=== PATIENT | female | born 1935 | race Caucasian/White ===

== ENCOUNTER 2016-12-18 10:01 | Day surgery (SDC) | payer MEDICARE ==
[~2016-12-18] VITALS: Ht 165.1 cm; Wt 65.5 kg
[~2016-12-18 10:01] MED LIST: ACET-1757 PO; ASPI-621 PO; BRIM5DRO4 EACHEYE; CALC-451 PO; CEFD300C37 PO; COLL1POW2 PO; COLLAGEN PO; DIPH25TA2 PO; DORZ10DR7 RIGHTEYE; GABA600T2 PO; GLUC1CAP PO; GLUC1CAP48 PO; KRIL500C PO; LATA2.5D3 EACHEYE; LOVA10TA PO; MELA1TAB6 PO; MULT-26 PO; NITR100C6 PO; OMEP-110 PO; PANT40TA5 PO; SERT50TA5 PO; TIMO5DRO5 EACHEYE; TRAM50TA2 PO
[2016-12-18 10:36] VITALS: BP 120/62
[2016-12-18] MEDS ORDERED: LIDOCAINE/PF 1%-EPI 1:200K, 30 ML ONE (10:36)
== END 2016-12-18 12:00 ==
LOC: CACL 10:01
PROVIDERS: ATTEND Internal Medicine Cardiovascular Disease
DX: R55 Syncope and collapse (principal); F41.9 Anxiety disorder, unspecified; G60.9 Hereditary and idiopathic neuropathy, unspecified; K21.9 Gastro-esophageal reflux disease without esophagitis; E78.5 Hyperlipidemia, unspecified; Z88.6 Allergy status to analgesic agent; Z88.1 Allergy status to other antibiotic agents; Z88.5 Allergy status to narcotic agent; Z88.8 Allergy status to other drugs, medicaments and biological substances
CPT/HCPCS: 33282; C1764; J3490

== ENCOUNTER 2018-12-04 11:15 | Outpatient (CLI) | payer MEDICARE, OTHER ==
[~2018-12-04 11:15] MED LIST changes: -ACET-1757 PO; +ACET-2065 PO; -ASPI-621 PO; +ASPI81TA45 PO; -GABA600T2 PO; +GABA600T7 PO; +SERT50TA28 PO; -SERT50TA5 PO
== END 2018-12-04 23:59 | disposition home or self-care (01) ==
LOC: CFH 11:15
PROVIDERS: ATTEND Nurse Practitioner Family
DX: Z12.31 Encounter for screening mammogram for malignant neoplasm of breast (principal)
CPT/HCPCS: 77067

== ENCOUNTER → 2019-07-01 | Outpatient (CLI) | payer MEDICARE, OTHER | END | disposition home or self-care (01) | LOC: CVU 12:37 | PROVIDERS: ATTEND Internal Medicine Cardiovascular Disease | DX: I08.2 Rheumatic disorders of both aortic and tricuspid valves (principal); I47.1 Supraventricular tachycardia; R55 Syncope and collapse | CPT/HCPCS: 93306 ==

== ENCOUNTER 2019-12-12 14:16 | Inpatient (IN) | payer MEDICARE, OTHER ==
[~2019-12-12] VITALS: Ht 162.6 cm; Wt 65.8 kg
[~2019-12-12 14:16] MED LIST changes: +DIPH-792 PO; -DIPH25TA2 PO; -LATA2.5D3 EACHEYE; +LATA2.5D4 EACHEYE; -PANT40TA5 PO; +PANT40TA6 PO
--- NOTE | 2019-12-12 15:09 | NUR ---
PT TO ROOM FROM LOBBY VIA WHEELCHAIR. SON ACCOMPANIES. PT/SON REPORT PROGRESSIVE REDNESS/SWELLING X TWO DAYS. RECENT HX OF UTI AND COVID +. DENIES FEVER/TRAUMA. NO OPEN WOUNDS NOTED. +DISTAL CAP REFILL/SENSATION/STRENGTH. WRIST TENDER TO LIGHT PALPATION . BP/SPO2 MONITOR IN PLACE. SON AT BEDSIDE. AWAITING ERP EVAL
[2019-12-12] MEDS ORDERED: KETOROLAC 30 MG/1 ML IVPush ONE (16:00)
[2019-12-12] MEDS ORDERED: CEFTRIAXONE PMX 1GM/50ML 50 ML IVPB ONE (16:00)
[2019-12-12] MEDS ORDERED: KETOROLAC 30 MG/1 ML ONE (16:10)
[2019-12-12 16:25] LABS: BASOPHILS % (AUTO) 0 % (0-1); EOSINOPHILS % (AUTO) 1 % (1-7); LYMPHOCYTES % (AUTO) 12 % (22-44); MEAN CORPUSCULAR HEMOGLOBIN 30.3 pg (27.0-34.8); MEAN CORPUSCULAR HGB CONC 33.1 g/dL (32.4-35.8); MEAN PLATELET VOLUME 7.2 fL (7.4-10.4); MONOCYTES % (AUTO) 9 % (2-9); NEUTROPHILS % (AUTO) 78 % (42-75); PLATELET COUNT 235 x10^3/uL (130-400); RED BLOOD COUNT 4.24 x10^6/uL (3.82-5.3); RED CELL DISTRIBUTION WIDTH 15.3 % (9.6-15.2)
[2019-12-12 16:28] LABS: MD NO
--- NOTE | 2019-12-12 16:28 | NUR ---
IV ESTABLISHED. BC X1 DRAWN. PT MEDICATED PER EMAR FOR PAIN. ADMITTING MD AT BEDSIDE FOR INITIAL ASSESSMENT. Addendum: 12/12/19 at 1629 by LWEGENER ROCEPHIN ORDER CANCELLED PT RECEIVED IM ROCEPHIN AT SAFEKEEPING CLERK
[2019-12-12] MEDS ORDERED: SIMV20TA19 PO (16:29)
[2019-12-12] MEDS ORDERED: SODIUM CHLORIDE FLUSH 10ML SYR IVF ONE (16:30)
[2019-12-12 16:36] LABS: ALBUMIN 3.6 g/dL (3.4-5.0); ANION GAP 6 mmol/L (5-15); CALCIUM 9.6 mg/dL (8.5-10.1); CHLORIDE 109 mmol/L (98-107); CREATININE 0.82 mg/dL (0.55-1.02)
[2019-12-12] MEDS ORDERED: morphine SULFATE 10 MG/ML, 1ML IVPush PRN (17:00)
[2019-12-12] MEDS ORDERED: HYDROmorphone 1 MG/ML, 1ML INJ IV PRN (17:00)
[2019-12-12] MEDS ORDERED: hydrALAzine 20 MG/ML, 1ML IVPush PRN (17:00)
[2019-12-12] MEDS ORDERED: PROMETHAZINE 25 MG/ML, 1ML IM PRN (17:00)
[2019-12-12] MEDS ORDERED: ONDANSETRON 2MG/ML, 2ML IVPush PRN (17:00)
[2019-12-12] MEDS ORDERED: LABETALOL 5MG/ML, 20ML IVPush PRN (17:00)
[2019-12-12] MEDS ORDERED: KETOROLAC 30 MG/1 ML IV PRN (17:00)
[2019-12-12] MEDS ORDERED: POLYETHYLENE GLYCOL 17 GM PACKET PO PRN (17:00)
[2019-12-12] MEDS ORDERED: IBUPROFEN 600 MG TABLET PO PRN (17:00)
[2019-12-12] MEDS ORDERED: ACETAMINOPHEN 325 MG TABLET PO PRN (17:00)
--- NOTE | 2019-12-12 17:15 | NUR ---
REPORT TO ANNETTE ANDERS ON FLOOR. PT PREPARED FOR TRANSPORT
[2019-12-12 17:45] VITALS: BP 106/63
[2019-12-12] MEDS: AMPICILLIN/SULBACTAM 1,500 MG in SODIUM CHLORIDE 0.9% 50 ML IV SCH ×2 (18:54→23:14)
[2019-12-12] MEDS: HYDROcodone/APAP 5/325 TABLET PO PRN ×2 (18:55→23:14)
[2019-12-12] MEDS: HEPARIN 5,000 UNITS/ML, 1ML SQ SCH (18:55)
[2019-12-12 20:10] VITALS: BP 117/60
[2019-12-12] MEDS: LATANOPROST OPHTH 0.005%, 2.5ML EACHEYE SCH (21:00)
[2019-12-12] MEDS: LACTULOSE 10 GM/15 ML UDC PO SCH (23:13)
[2019-12-12] MEDS: GABAPENTIN 300 MG CAPSULE PO SCH (23:13)
[2019-12-13 00:21] VITALS: BP 109/51
[2019-12-13] MEDS: HEPARIN 5,000 UNITS/ML, 1ML SQ SCH ×3 (02:58→18:35)
[2019-12-13] MEDS: AMPICILLIN/SULBACTAM 1,500 MG in SODIUM CHLORIDE 0.9% 50 ML IV SCH ×4 (06:06→22:29)
[2019-12-13 06:29] LABS: BASOPHILS % (AUTO) 0 % (0-1); EOSINOPHILS % (AUTO) 2 % (1-7); LYMPHOCYTES % (AUTO) 27 % (22-44); MEAN CORPUSCULAR HEMOGLOBIN 30.4 pg (27.0-34.8); MEAN CORPUSCULAR HGB CONC 32.7 g/dL (32.4-35.8); MEAN PLATELET VOLUME 7.6 fL (7.4-10.4); MONOCYTES % (AUTO) 10 % (2-9); NEUTROPHILS % (AUTO) 61 % (42-75); PLATELET COUNT 191 x10^3/uL (130-400); RED BLOOD COUNT 3.71 x10^6/uL (3.82-5.3); RED CELL DISTRIBUTION WIDTH 15.3 % (9.6-15.2)
[2019-12-13 06:37] LABS: MD NO
[2019-12-13 06:40] LABS: ANION GAP 6 mmol/L (5-15); CALCIUM 8.9 mg/dL (8.5-10.1); CHLORIDE 110 mmol/L (98-107)
[2019-12-13 06:45] LABS: ALANINE AMINOTRANSFERASE 15 U/L (12-78); ALKALINE PHOSPHATASE 44 U/L (45-117); BILIRUBIN,TOTAL 0.7 mg/dL (0.2-1.0); CREATININE 0.79 mg/dL (0.55-1.02); TOTAL PROTEIN 6.4 g/dL (6.4-8.2)
[2019-12-13 08:30] VITALS: BP 99/66
[2019-12-13] MEDS: SERTRALINE 50MG TABLET PO SCH (09:00)
[2019-12-13] MEDS ORDERED: GADOTERATE 7.5 MMOL/15 ML VIAL ONE (09:46)
[2019-12-13] MEDS: SENNA/DOCUSATE TABLET PO SCH (10:57)
[2019-12-13] MEDS: LACTULOSE 10 GM/15 ML UDC PO SCH ×2 (10:58→20:18)
[2019-12-13] MEDS: PANTOPRAZOLE 40MG TABLET PO SCH (10:58)
[2019-12-13] MEDS: HYDROcodone/APAP 5/325 TABLET PO PRN ×2 (13:16→22:12)
[2019-12-13 15:15] VITALS: BP 99/64
[2019-12-13 19:26] VITALS: BP 94/60
[2019-12-13] MEDS: LATANOPROST OPHTH 0.005%, 2.5ML EACHEYE SCH (20:16)
[2019-12-13] MEDS: GABAPENTIN 300 MG CAPSULE PO SCH (20:18)
[2019-12-13] MEDS ORDERED: MELATONIN 5 MG TABLET PO PRN (23:00)
[2019-12-14] MEDS: HEPARIN 5,000 UNITS/ML, 1ML SQ SCH ×3 (03:02→18:44)
[2019-12-14 03:10] VITALS: BP 92/55
[2019-12-14] MEDS: AMPICILLIN/SULBACTAM 1,500 MG in SODIUM CHLORIDE 0.9% 50 ML IV SCH ×4 (05:22→23:24)
[2019-12-14 08:25] VITALS: BP 97/62
[2019-12-14] MEDS ORDERED: SERTRALINE 100MG TABLET ONE (08:45)
[2019-12-14] MEDS: PANTOPRAZOLE 40MG TABLET PO SCH (08:51)
[2019-12-14] MEDS: SENNA/DOCUSATE TABLET PO SCH (08:51)
[2019-12-14] MEDS: SERTRALINE 50MG TABLET PO SCH (08:52)
[2019-12-14] MEDS: LACTULOSE 10 GM/15 ML UDC PO SCH ×2 (08:52→19:56)
[2019-12-14 13:04] LABS: HCT (SEDRATE) 38.5 % (34.6-47.8)
[2019-12-14 14:00] VITALS: BP 101/63
[2019-12-14 16:24] VITALS: BP 101/63
[2019-12-14 19:06] VITALS: BP 94/58
[2019-12-14] MEDS: GABAPENTIN 300 MG CAPSULE PO SCH (19:56)
[2019-12-14] MEDS: LATANOPROST OPHTH 0.005%, 2.5ML EACHEYE SCH (19:56)
[2019-12-15 01:46] VITALS: BP 113/70
[2019-12-15] MEDS: HEPARIN 5,000 UNITS/ML, 1ML SQ SCH ×2 (03:55→10:28)
[2019-12-15] MEDS: AMPICILLIN/SULBACTAM 1,500 MG in SODIUM CHLORIDE 0.9% 50 ML IV SCH ×2 (05:28→10:28)
[2019-12-15 07:07] VITALS: BP 115/76
[2019-12-15] MEDS: SENNA/DOCUSATE TABLET PO SCH (07:33)
[2019-12-15] MEDS: LACTULOSE 10 GM/15 ML UDC PO SCH (07:33)
[2019-12-15] MEDS: PANTOPRAZOLE 40MG TABLET PO SCH (07:59)
[2019-12-15] MEDS: SERTRALINE 50MG TABLET PO SCH (07:59)
[2019-12-15] MEDS ORDERED: FLU VACC QS2020-21(6MOS UP)/PF 60MCG/0.5 ML SYR IM-VACC ONE (10:00)
[2019-12-15] MEDS ORDERED: ACET325T26 PO (10:28)
[2019-12-15] MEDS ORDERED: AMOX1TAB64 PO (10:28)
[2019-12-15] MEDS ORDERED: SULF1TAB24 PO (10:28)
[2019-12-15 12:43] LABS: MICROSCOPIC INDICATED
[2019-12-15 13:02] VITALS: BP 96/65
== END 2019-12-15 13:40 | disposition home or self-care (01) | DRG 603 ==
LOC: ED 15:49 → EDIP 16:40 → 3WST 17:30 → DCLOUNGE 12-15 13:32
PROVIDERS: ADMIT Internal Medicine; ATTEND Internal Medicine
DX: L03.113 Cellulitis of right upper limb (principal); E78.5 Hyperlipidemia, unspecified; M11.20 Other chondrocalcinosis, unspecified site; K59.09 Other constipation; Z96.653 Presence of artificial knee joint, bilateral; F32.9 Major depressive disorder, single episode, unspecified; M19.90 Unspecified osteoarthritis, unspecified site; K21.9 Gastro-esophageal reflux disease without esophagitis; H40.9 Unspecified glaucoma; Z87.440 Personal history of urinary (tract) infections; Z88.5 Allergy status to narcotic agent; Z88.8 Allergy status to other drugs, medicaments and biological substances
CPT/HCPCS: 36415; 80048; 80053; 81001; 82040; 83605; 85025; 85651; 86140; 87040; 90686; 96361; 96374; 99285; G0378; J1644; J1885; J2405; A9575; J0295

== ENCOUNTER 2020-03-03 16:01 | Observation (INO) | payer MEDICARE, OTHER ==
[~2020-03-03] VITALS: Ht 162.6 cm; Wt 66.8 kg
[~2020-03-03 16:01] MED LIST changes: +ACET325T26 PO; +AMOX1TAB64 PO; +MELA1TAB46 PO; -MELA1TAB6 PO; +SIMV20TA19 PO; +SULF1TAB24 PO
--- NOTE | 2020-03-03 16:12 | NUR ---
BIB EMS FOR C/O CP STARTED TODAY AT 1100 INTERMITTEN AT FIRST. CP RADIATING INTO NECK. PT DENIES INDIGESTION. STATES HX GERD IS ON PRILOSEC. PT STATES PAIN IS BURNING SENSATION VERY STRONG UNLIKE THE OTHER TIMES IT HAS NOT SUBSIDED. PT RESTING ON GURNEY. NADN. VSS. MONITORS APPLIED. PIV IN PLACE.
--- NOTE | 2020-03-03 16:35 | NUR ---
PT RESTING ON GURNEY. NADN. ARZOLA.
[2020-03-03 17:05] LABS: BASOPHILS % (AUTO) 1 % (0-1); EOSINOPHILS % (AUTO) 3 % (1-7); LYMPHOCYTES % (AUTO) 31 % (22-44); MEAN CORPUSCULAR HEMOGLOBIN 30.9 pg (27.0-34.8); MEAN CORPUSCULAR HGB CONC 33.3 g/dL (32.4-35.8); MEAN PLATELET VOLUME 7.3 fL (7.4-10.4); MONOCYTES % (AUTO) 8 % (2-9); NEUTROPHILS % (AUTO) 58 % (42-75); PLATELET COUNT 218 x10^3/uL (130-400); RED BLOOD COUNT 4.38 x10^6/uL (3.82-5.3); RED CELL DISTRIBUTION WIDTH 14.1 % (9.6-15.2)
[2020-03-03 17:06] LABS: MD NO
[2020-03-03 17:18] LABS: ALANINE AMINOTRANSFERASE 29 U/L (12-78); ALBUMIN 3.7 g/dL (3.4-5.0); ANION GAP 2 mmol/L (5-15); CALCIUM 8.7 mg/dL (8.5-10.1); CHLORIDE 109 mmol/L (98-107)
[2020-03-03 17:23] LABS: ALKALINE PHOSPHATASE 48 U/L (45-117); BILIRUBIN,TOTAL 0.5 mg/dL (0.2-1.0); TOTAL PROTEIN 7.3 g/dL (6.4-8.2); TROPONIN I < 0.015 ng/mL (0.000-0.045)
--- NOTE | 2020-03-03 17:34 | NUR ---
PT RESTING ON GURNEY. NADN. ARZOLA. PT CHART REVIEWED AND PLACED FOR RECHECK.
--- NOTE | 2020-03-03 18:17 | NUR ---
ERP DR. AREANS AT BEDSIDE FOR RE-EVAL.
--- NOTE | 2020-03-03 18:38 | NUR ---
PT AWARE OF POC FOR ADMIT AND IS AGREEABLE. PER ERP DR. ARENAS PT OKAY TO EAT. PROVIDED W/ WATER AND DIET TRAY ORDERED. PT RESTING ON GURNEY. NADN. ARZOLA.
--- NOTE | 2020-03-03 19:13 | NUR ---
PT PROVIDED W/ DINNER TRAY.
--- NOTE | 2020-03-03 20:05 | NUR ---
PT RESTING ON GURNEY. NADN. ARZOLA.
--- NOTE | 2020-03-03 20:25 | NUR ---
PT MOVED FROM [facility] TO [facility] BED.
--- NOTE | 2020-03-03 20:55 | NUR ---
REPORT GIVEN TO AGATA HENDRIX RN. ALL QUESTIONS ANSWERED. AWAITING MD ORDER ACKNOWLEDGMENT AND TRANSPORT.
[2020-03-03 21:30] VITALS: BP 94/53
[2020-03-03] MEDS ORDERED: DILTIAZEM 5 MG/ML, 5ML IVPush PRN (22:30)
[2020-03-03] MEDS ORDERED: morphine SULFATE 10 MG/ML, 1ML IV PRN (22:30)
[2020-03-03] MEDS ORDERED: ACETAMINOPHEN 325 MG TABLET PO PRN (22:30)
[2020-03-03] MEDS ORDERED: ONDANSETRON 2MG/ML, 2ML IVPush PRN (22:30)
[2020-03-03] MEDS ORDERED: ENOXAPARIN 40 MG/0.4 ML SQ SCH (22:30)
[2020-03-03 23:36] LABS: TROPONIN I < 0.015 ng/mL (0.000-0.045)
[2020-03-04] MEDS ORDERED: MELATONIN 5 MG TABLET PO PRN
[2020-03-04] MEDS ORDERED: GABAPENTIN 300 MG CAPSULE PO SCH (00:27)
[2020-03-04 05:55] LABS: BASOPHILS % (AUTO) 1 % (0-1); EOSINOPHILS % (AUTO) 4 % (1-7); LYMPHOCYTES % (AUTO) 41 % (22-44); MEAN CORPUSCULAR HEMOGLOBIN 30.9 pg (27.0-34.8); MEAN PLATELET VOLUME 7.4 fL (7.4-10.4); MONOCYTES % (AUTO) 8 % (2-9); NEUTROPHILS % (AUTO) 47 % (42-75); PLATELET COUNT 197 x10^3/uL (130-400); RED BLOOD COUNT 4.15 x10^6/uL (3.82-5.3)
[2020-03-04] MEDS ORDERED: ASPIRIN 325 MG TABLET EC PO SCH (06:00)
[2020-03-04 06:03] LABS: ANION GAP 1 mmol/L (5-15); CALCIUM 8.4 mg/dL (8.5-10.1); CHLORIDE 111 mmol/L (98-107)
[2020-03-04 06:06] LABS: MD NO
[2020-03-04 06:09] LABS: CHOL/HDL RATIO 2.9; CHOLESTEROL, TOTAL 177 mg/dL (140-239); CREATININE 0.78 mg/dL (0.55-1.02); HDL CHOL % 34 % (28-40); HDL CHOLESTEROL (DIRECT) 61 mg/dL (40-60); LDL CHOLESTEROL,CALCULATED 99 mg/dL (54-169); LDL/HDL RATIO 1.6 (0.5-3.0); TRIGLYCERIDES 83 mg/dL (50-200); TROPONIN I < 0.015 ng/mL (0.000-0.045); VLDL CHOLESTEROL 17 mg/dL (0-25)
[2020-03-04 06:35] VITALS: BP 109/71
[2020-03-04 06:58] VITALS: BP 109/71
[2020-03-04] MEDS ORDERED: REGADENOSON 0.4 MG/5 ML SYRINGE ONE (08:05)
[2020-03-04] MEDS ORDERED: PANTOPRAZOLE 40MG TABLET PO SCH (09:00)
[2020-03-04] MEDS ORDERED: SERTRALINE 50MG TABLET PO SCH (09:00)
[2020-03-04 12:01] VITALS: BP 101/63
[2020-03-04 12:45] VITALS: BP 100/53
[2020-03-04] MEDS ORDERED: SIMVASTATIN 20 MG TABLET PO SCH (21:00)
== END 2020-03-04 14:53 | disposition home or self-care (01) ==
LOC: ED 19:12 → INTOOBSV 19:19 → EDIP 19:19 → 5SO 21:25 → DCLOUNGE 03-04 14:45
PROVIDERS: ADMIT Family Medicine; ATTEND Family Medicine
DX: R07.89 Other chest pain (principal); I51.89 Other ill-defined heart diseases; R00.2 Palpitations; K21.9 Gastro-esophageal reflux disease without esophagitis; E78.5 Hyperlipidemia, unspecified; M19.90 Unspecified osteoarthritis, unspecified site; N39.0 Urinary tract infection, site not specified; I48.91 Unspecified atrial fibrillation; I51.7 Cardiomegaly; K22.4 Dyskinesia of esophagus; Z86.16 Personal history of COVID-19; Z79.899 Other long term (current) drug therapy; Z87.440 Personal history of urinary (tract) infections; Z96.641 Presence of right artificial hip joint; Z96.653 Presence of artificial knee joint, bilateral
CPT/HCPCS: 36415; 71045; 78452; 80048; 80053; 80061; 83690; 83735; 83880; 84443; 84484; 85025; 93005; 93017; 96372; 99285; A9502; G0378; J1650; J2785

== ENCOUNTER 2020-08-19 07:10 | Day surgery (SDC) | payer MEDICARE, OTHER ==
[~2020-08-19 07:10] MED LIST changes: +SULF-23 PO; -SULF1TAB24 PO
[2020-08-19] MEDS ORDERED: LIDOCAINE 2%, 20ML ONE (07:43)
== END 2020-08-19 09:11 | disposition home or self-care (01) ==
LOC: CACL 07:10
PROVIDERS: ATTEND Internal Medicine Cardiovascular Disease
DX: Z45.09 Encounter for adjustment and management of other cardiac device (principal); E78.5 Hyperlipidemia, unspecified; G62.9 Polyneuropathy, unspecified; I00 Rheumatic fever without heart involvement; Z79.899 Other long term (current) drug therapy; Z88.5 Allergy status to narcotic agent; Z88.8 Allergy status to other drugs, medicaments and biological substances; Z98.890 Other specified postprocedural states
CPT/HCPCS: 33286; C1764

== ENCOUNTER 2020-10-26 11:29 | Outpatient (CLI) | payer MEDICARE, OTHER | END 2020-10-26 23:59 | disposition home or self-care (01) | LOC: CFH 11:29 | PROVIDERS: ATTEND Nurse Practitioner Family | DX: M81.8 Other osteoporosis without current pathological fracture (principal) | CPT/HCPCS: 77080 ==